=== PATIENT | female | born 1970 | race Caucasian/White ===

== ENCOUNTER 2018-07-06 13:56 | Inpatient (IN) ==
[~2018-07-06 13:56] MED LIST: LIDOCAINE W/ SODIUM BICARB 0.5 ML SYR SUBD ONE; Lactated Ringers 1,000 ML PRIMARY IV ONE; Nasal Sanitizer POPSWAB ampule 3 AMP (Nozin) PREOP DOSE ENOS SCH; ceFAZolin Inj 2gm (Premix) 2 GM/50 ML BAG IV ONE
[2018-07-06] MEDS ORDERED: ceFAZolin Inj 2gm (Premix) 2 GM/50 ML BAG IV ONE (14:07)
[2018-07-06] MEDS ORDERED: Vancomycin Inj 1gm vial ONE ×2 (14:07→17:47)
[2018-07-06] MEDS ORDERED: Lactated Ringers 1,000 ML PRIMARY IV ONE (14:08)
[2018-07-06] MEDS ORDERED: LIDOCAINE W/ SODIUM BICARB 0.5 ML SYR ONE (14:08)
[2018-07-06] MEDS ORDERED: Sodium Chloride 0.9% 250 ML ONE (14:09)
[2018-07-06 14:37] LABS: BILIRUBIN,URINE NEGATIVE (NEG); CLARITY,URINE CLEAR (CLEAR); COLOR,URINE YELLOW (Y); GLUCOSE, URINE (UA) 500 mg/dL (NEG); OCCULT BLOOD,URINE NEGATIVE (NEG); PH,URINE 5.5 (5.0-8.5); PROTEIN,URINE NEGATIVE (NEG); URINE SAMPLE TYPE CLEAN CATCH URINE; UROBILINOGEN,URINE 0.2 EU/dL (0.2)
[2018-07-06] MEDS ORDERED: SUCCINYLCHOLINE CHLORIDE 20 MG/1 ML - 10 ML ONE (14:49)
[2018-07-06] MEDS ORDERED: ROCURONIUM 10 MG/1 ML - 5 ML VIAL IVP ONE (14:49)
[2018-07-06] MEDS ORDERED: PROPOFOL 10 MG/1 ML (200 MG/20 ML) VIAL IV ONE ×2 (15:50)
[2018-07-06] MEDS ORDERED: DEXTROSE 50%-WATER SYRINGE 50 ML SYRINGE ONE ×2 (16:28→20:05)
[2018-07-06] MEDS: DEXTROSE 50%-WATER SYRINGE 50 ML SYRINGE IVP ONE ×2 (16:35→20:08)
[2018-07-06] MEDS ORDERED: BUPIVACAINE 0.25% W/ EPI - 10 ML VIAL ONE (17:21)
[2018-07-06] MEDS ORDERED: Gentamicin Inj 40 MG/ML VIAL ONE (17:47)
[2018-07-06] MEDS ORDERED: Sodium Chloride 0.9% vial 20 ML ONE (17:47)
[2018-07-06] MEDS ORDERED: BUPivacaine Liposome/PF (Exparel) Inj 20ml vial INFIL ONE (17:48)
[2018-07-06] MEDS ORDERED: BACITRACIN 50,000 UNIT VIAL IRRIG ONE (17:51)
[2018-07-06] MEDS ORDERED: ONDANSETRON 4 MG/2 ML VIAL IVP PRN ×2 (20:02→20:58)
[2018-07-06] MEDS ORDERED: LIDOCAINE W/ SODIUM BICARB 0.5 ML SYR SUBD PRN (20:02)
[2018-07-06] MEDS ORDERED: fentaNYL Inj 100 MCG/2 ML VIAL IVP PRN (20:02)
--- NOTE | 2018-07-06 20:02 | GEN.OPNOTE ---
Operative Note Surgery Date: 07/06/18 Preoperative Diagnosis: 1. Status post work related injury. 2. Chronic low back pain secondary to #1. 3. Chronic right lower extremity symptoms secondary to #1. 4. Mild to moderate lumbar degenerative changes, age consistent. 5. Good coverage of her chronic low back and right lower extremity symptoms with a previous dorsal column stimulator system that had to subsequently be removed for infection. Postoperative Diagnosis: 1. Status post work related injury. 2. Chronic low back pain secondary to #1. 3. Chronic right lower extremity symptoms secondary to #1. 4. Mild to moderate lumbar degenerative changes, age consistent. 5. Good coverage of her chronic low back and right lower extremity symptoms with a previous dorsal column stimulator system that had to subsequently be removed for infection. Procedure: 1.) Redo T10-11 laminectomy for the placement of dorsal column system paddle lead electrode into the epidural space. (CPT code: 25697). 2.) Insertion of [employer] 7 Elite dorsal column stimulator system IPG/battery into the left buttocks. (CPT code: 40941) Surgeon: Gutierrez Guzman MD Transit Planning Director: NIGEL Layne Anesthesia Provider: Aydin Carlos MD Anesthesia Type: General Estimated Blood Loss (mL): 20 Fluids: See anesthesia record Pathology: None Indications: Ms. Hayes is a 47 year old female status post a work related injury with resulting chronic low back and bilateral lower extremity pain. She underwent a successful dorsal stimulator trial. She underwent a permanent dorsal column stimulator placement in June 2017 which worked well to reduce her back and leg symptoms, but the system had to be removed in July 2017 for infection. She was cleared by Dr. Uriarte to proceed with placing a new dorsal column stimulator system and Worker's Compensation authorized this surgery. She wished to proceed with the surgical procedure. Findings: None Complications: None Operative Summary: Ms. Hayes was met in the preoperative area. Her documented surgical history and physical in her chart was reviewed. The procedure to be performed was confirmed with Miss Nguyen and she was in agreement on the procedure to be performed and this matched what was written on the patient's consent form. Any questions that she or her had were answered before she was taken back to the operating room suite. Ms. Hayes was brought back to the operating room suite and put under general anesthesia and intubated by the anesthesia staff. She had a Ramos catheter placed or bladder for the procedure. She had pneumatic compression hose placed on her lower legs bilaterally. Ms. Hayes was carefully rolled over onto the Mo surgical table with her arms gently positioned upwards with her shoulders abducted less than 90. Her arms were well-padded with foam padding on top of the padding the surgical armboards. The region of her chest and axilla was checked bilaterally to make sure that there were no pressure points over the region of the brachial plexus. Her breasts were checked be below the chest pad of the Mo table no pressure points over the nipples. All bony prominences were well padded. Her Ramos catheter was checked be free from kinks. Her pneumatic compression hose was attached and pneumatic compression device. Ms. Hayes's midline thoracic scar from her previous dorsal column simulator system placement was demarcated with a skin marker. A new IPG/battery site was chosen in the left buttocks location. The intended incision for the IPG/battery site was demarcated with a skin marker with several crosshatches. She was prepped and draped in the usual and standard fashion. She was given 2 g of Ancef and a gram of vancomycin IV for perioperative antibiosis. A standard surgical timeout was performed identifying the correct patient, the correct procedure, and the correct equipment being available for the procedure. Both intended skin incisions were injected subcutaneously with quarter percent Marcaine with 1 in 200,000 epinephrine. The left buttocks incision was incised with a 10 blade scalpel and all dermal and superficial bleeding points coagulat ed with bipolar cautery. Dissection was then taken down through the subcutaneous tissue using Bovie cautery to a depth of approximately a 7 cm and half to 2 cm and then a pocket was made in the subcutaneous tissue at this depth with three quarters of the pocket being caudal to the skin incision and quarter of the pocket being rostral to the skin incision. Bacitracin soaked sponges were placed in to the formed pocket. Attention was turned to the thoracic exposure. The skin was incised with a 10 blade scalpel and all dermal and superficial bleeding points were coagulated with bipolar cautery. Dissection was continued down through the subcutaneous tissue and scar tissue from the patient's previous surgery to the thoracic fascia. The small gap between the T10 and T11 spinous processes where the caudal aspect of the T10 spinous process had been removed during her previous surgical procedure was identified. Subperiosteal dissection was performed down the T10 spinous process and the T11 spinous process and out over the respective lamina bilaterally. Cerebellar retractors were placed for self-retaining retraction. The scar tissue between the T10 and T11 spinous processes was carefully removed down to close to the level of the spinal canal using a large Leksell rongeur. The high-speed [employer] electric drill with a matchstick bit was then used to extend the previous partial T10 T10 laminectomy more rostrally. An up angled curette was then used to carefully dissect the scar tissue from underneath the ventral aspect of the T10 lamina dissecting this plane to the leading edge of the T10 lamina and the canal and also to the lateral aspects of the canal bilaterally. The small Medtronic plastic epidural dissector was then placed into the dorsal epidural space ventral to the T10 lamina and advanced rostrally advancing easily into the epidural space. The same was then performed with the large Medtronic plastic epidural dissector. The [employer] Pent[employer] dorsal column stimulator paddle lead electrode array was then passed into the epidural space passing easily. It was carefully adjusted a few times to get it in as close to a midline position as possible. The final position of the paddle lead electrode array was spanning the entire aspect of the T9 vertebral body as well as the T8-9 and T9-10 disc spaces. The rostral aspect of the electrode array was situated somewhat right of midline with the caudal aspect of the electrode array situated somewhat left of midline but it was felt that good coverage including good lower extremity coverage bilaterally would be able to be obtained with the position of the electrode array. A channel was made through the rostral aspect of the T11 spinous process with a bone clamp. A #0 silk suture was passed through the channel in the T11 spinous process and tied securely to the spinous process. The lead anchors were then passed over the leads and then the leads were securely anchored to the T11 spinous process with the silk suture. Another AP fluoroscopic image was obtained to make sure that the paddle lead electrode array remained in the same position without change. A small pocket was made above the fascia in the inferior aspect of the thoracic dissection on the left to make a small pocket for a stress relieving loop of the leads. The lead tunneler was then tunneled from this pocket to the IPG/battery pocket in the left buttocks through the subcutaneous tissue. The trocar was then removed from the plastic sheath and the leads were passed with a plastic sheath to the left buttocks IPG/battery pocket and the muscle plastic sheath was removed. The ends of the lead contacts were then cleansed with a bacitracin soaked sponge and dried with sterile dry sponge. The ends of the leads were then placed in to the [employer] Proclaim 7 Elite IPG/battery devise and secured within the device using the [employer] screwdriver. A gentle tugged on each lead confirmed that there were snugly attached in the device. The IPG/battery device was then interrogated with all contacts made to the thoracic lead electrode array contacts with good impedance indicating that the device was fully functional. Both surgical sites were irrigated with hydrogen peroxide solution. This was allowed to sit for a few minutes. The surgical sites were then both pulse lavaged with 3 L of bacitracin/vancomycin/gentamicin solution. The IPG/battery device was then placed, label up, with any excess leads coiled behind the device into the IPG/battery pocket. The device was secured to the deep subcutaneous tissue using two #0 silk suture. A stress relieving loop was made in the proximal aspect the leads and the thoracic dissection and placed into the subcutaneous pocket above the fascia at the left lower aspect of the surgical dissection. Both surgical sites were again irrigated with bacitracin irrigation. The closure of both sites were begun. The IPG/battery site was closed with 2-0 Vicryl suture in the deep subcutaneous tissue. The dermal and superficial subcutaneous tissue was then reapproximated with 3-0 Vicryl suture in an inverted interrupted fashion. The thoracic fascia was closed tightly with #1 Vicryl suture in interrupted fashion. The subcutaneous tissue was reapproximated with 2-0 Vicryl suture in a interrupted fashion. The dermis and superficial subcutaneous tissue was reapproximated with 3-0 Vicryl suture in an inverted interrupted fashion. During the closure 20 mL of Experel deluded with 10 mL of quarter percent Marcaine was injected in the subcutaneous tissue all around both incision sites between the closures with the 2-0 Vicryl suture and 3-0 Vicryl suture. The Ioban drape was pulled back from the skin edges from both incisions. The final closure of both incisions was with surgical stainless steel julisa. The incisions were cleansed with a bacitracin soaked sponge and dried with a sterile dry sponge. The incisions were dressed with coverlet her dressings. All surgical drapes removed from Ms. Hayes. She was carefully rolled over onto the PACU stretcher. She was awoken and a the anesthesia staff. She was taken the recovery room in stable condition. All surgical counts reported as correct by the scrub and circulating personnel. A physician's costumer assistant, Mrs. Rin Almanza PA-C, assisted with the procedure including the exposure and closure portions of the procedure as well as with irrigation and suctioning throughout the procedure and pulse lavaging the surgical sites.
--- NOTE | 2018-07-06 20:02 | CRNA.PROGR ---
Anesthesia Recovery Phase I - Post Anesthesia Evaluation Patient's Condition on Arrival in Phase I: Stable Patient's Condition on Arrival in Phase II: Stable Pain Level: 3
--- NOTE | 2018-07-06 20:05 | CRNA.PROGR ---
Anesthesia Time - Procedure/Recovery Time Start Date: 07/06/18 End Date: 07/06/18 Anesthesia : Time In: 17:00 Anesthesia : Time Out: 20:01 Anesthesia : Total Time: 181 - Total Anesthesia Time Total Anesthesia Time (minutes): 181 - Other Weight: 68.946 kg Height: 5 ft 2 in Body Mass Index (BMI): 27.8 Physical Status: P3 Anesthesia Type: General Anesthesia : ET
--- NOTE | 2018-07-06 20:06 | CRNA.PROGR ---
Anesthesia Note - Progress Notes Anesthesia Progress Note: pt progressed well through PACU, to floor stable. Recovering well from anesthesia follow-up at physician/surgeon request PRN
[2018-07-06] MEDS ORDERED: Lactated Ringers 1,000 ML PRIMARY IV SCH (20:15)
--- NOTE | 2018-07-06 20:37 | NEURO.PROG ---
Subjective Post Op Day: 0 Pain Management: IV Ramos Catheter: Yes Diet: Constant carbohydrate Ambulating: No Additional Details: Awake and alert in PACU. Following commands. Moving all extremities well. Good knee flexion, dorsiflexion, plantarflexion bilaterally. PLAN: 1.) Continue post-operative antibiotics. 2.) Continue post-operative pain control. 3.) Advance diet. 4.) Start to mobilize in am. Objective : Data - Vital Signs Vital Signs and I&O: Vital Signs - Last Taken Temperature 97.8 F 07/06/18 16:10 Pulse Rate 96 07/06/18 16:10 Respiratory Rate 12 07/06/18 16:10 Blood Pressure 108/76 07/06/18 16:10 Pulse Ox 99 07/06/18 16:10 Intake and Output (24hr x 4 totals) 07/04/18 07/05/18 07/06/18 07/07/18 05:59 05:59 05:59 05:59 Intake Total 1750 / 1750 Output Total 270 / 270 Balance 1480 / 1480
[2018-07-06] MEDS ORDERED: Metoclopramide Inj 10 MG/2 ML VIAL IVP PRN (20:58)
[2018-07-06] MEDS ORDERED: oxyCODONE/APAP 10/325 Tab 1 EACH TAB PO PRN (20:58)
[2018-07-06] MEDS ORDERED: Ondansetron ODT Tab 4 MG TAB PO PRN (20:58)
[2018-07-06] MEDS ORDERED: DIAZEPAM 10 MG/2 ML (5 MG/1 ML) CARPUJECT IVP PRN (20:58)
[2018-07-06] MEDS ORDERED: DIAZEPAM 5 MG TABLET PO PRN (20:58)
[2018-07-06] MEDS ORDERED: Vancomycin-PHA to Dose IV SCH (20:58)
[2018-07-06] MEDS ORDERED: Prochlorperazine Edisylate Inj 10mg/2ml vial IVP PRN (20:58)
[2018-07-06] MEDS ORDERED: Fleet Enema 133ml RECTAL PRN (20:58)
[2018-07-06] MEDS ORDERED: INSULIN DEGLUDEC 36 UNIT SUBCUT SCH (20:58)
[2018-07-06] MEDS ORDERED: MAGNESIUM CITRATE 296 ML SOLUTION PO PRN (20:58)
[2018-07-06] MEDS ORDERED: traZODone Tab 50 MG TAB PO SCH (20:58)
[2018-07-06] MEDS ORDERED: [UNRECOGNIZED DRUG - OTHER] SCH (20:58)
[2018-07-06] MEDS ORDERED: BISACODYL 5 MG TABLET PO PRN (20:58)
[2018-07-06] MEDS ORDERED: ALPRAZolam Tab 1 MG TABLET PO PRN (20:58)
[2018-07-06] MEDS ORDERED: MAGNESIUM 400 MG/5 ML - 30 ML (MILK OF MAGNESIA) PO PRN (20:58)
[2018-07-06] MEDS ORDERED: DOCUSATE 100 MG CAPSULE PO PRN (20:58)
[2018-07-06] MEDS ORDERED: NARATRIPTAN HCL 2.5 MG PO SCH (20:58)
[2018-07-06] MEDS ORDERED: HYDROmorphone 2 MG TABLET PO PRN (20:58)
[2018-07-06] MEDS ORDERED: PROMETHAZINE 25 MG/1 ML VIAL IM PRN (20:58)
[2018-07-06] MEDS ORDERED: Promethazine Tab 25 MG TAB PO PRN (21:30)
[2018-07-06] MEDS ORDERED: AMITRIPTYLINE 25 MG TABLET PO SCH (21:45)
[2018-07-06] MEDS ORDERED: DEXTROSE 31 GM GEL PO PRN (21:53)
[2018-07-06] MEDS ORDERED: Glucagon Inj Vial 1 MG/ML VIAL IM PRN (21:53)
[2018-07-06] MEDS ORDERED: DEXTROSE 50%-WATER SYRINGE 50 ML SYRINGE IVP PRN (21:53)
[2018-07-06] MEDS ORDERED: Insulin Sliding Scale Protocol SUBCUT PRN (21:53)
--- NOTE | 2018-07-06 22:01 | PDOC ---
HPI - History of Present Illness Date of Service: 07/06/18 Time of Service: 21:55 Chief Complaint: chronic back pain History of Present Illness: This is a 47 YO female that is post operative after a spine stimulator was placed today by Dr. Guzman. Please see his surgical notes regarding the procedure. Post operatively, no complaints of chest pain, shortness of breath, or vomiting. The patient is still sleepy from anesthesia and surgery so the history was obtained from the patients at bedside and discussion with Dr. Guzman and review of the available medical record. The patient had a prior spine stimulator placed in April,, but developed an infection. She was treated by Dr. Uriarte, and ID doctor in [place]. He apparently cleared her to proceed with surgery after improvements in diabetes control and cessation of smoking. The patient has been on chantix and is down to 1 cigarette every four days per her husbands history. The patient is on long acting insulin therapy for her diabetes. She was apparently hypoglycemic prior to surgery and got an amp of D50. The stimulator worked very well for pain control in April,, according to her . The hospitalist service has been asked to assist with evaluation and management of diabetes and tobacco use. Past Medical History Medical History: 1. DMII, insulin dependent. 2. chronic back pain. 3. tobacco abuse. 4. sleep apnea. 5. anxiety disorder Surgical History: 1. Neck surgery X2. 2. CHolecysectomy Pertinent Family History: significant for COPD and heart problems Past Social History: smokes 1 cigarette every 4 days, used to smoek 3 PPD, rarely has alcohol, for 14 years. Has three healthy daughters. Tobacco Use: Current Every Day Smoker In the Past 12 Months, Have Used or Abuse Any of the Following Substance: None Alcohol Use: Rarely Medication / Allergies Home Medications: Home Medications Medication Instructions Recorded Confirmed Type alprazolam 1 mg tablet 1 mg PO BID-TID PRN 01/03/18 07/05/18 History amitriptyline 50 mg tablet 50 mg PO QDAY 01/03/18 07/05/18 History fluconazole 100 mg tablet 100 mg PO QDAY 01/03/18 07/05/18 History furosemide 20 mg tablet 20 mg PO QDAY 01/03/18 07/05/18 History gabapentin 600 mg tablet 600 mg PO TID 01/03/18 07/05/18 History insulin admin supplies See Dose Instructions .ROUTE 01/03/18 07/05/18 History subcutaneous pen .MEDSUPPLY #1 ea insulin degludec (U-100) 100 36 unit SUBCUT QHS ml 01/03/18 07/05/18 History unit/mL (3 mL) subcutaneous pen methocarbamol 500 mg tablet 500 mg PO QID 01/03/18 07/05/18 History naratriptan 2.5 mg tablet 2.5 mg PO ONCE 01/03/18 07/05/18 History omeprazole 40 mg capsule,delayed 40 mg PO QDAY 01/03/18 07/05/18 History release promethazine 12.5 mg tablet 12.5 mg PO Q6H PRN 01/03/18 07/05/18 History trazodone 50 mg tablet 50 mg PO QDAY 01/03/18 07/05/18 History oxycodone 10 mg tablet 20 mg PO Q4-6H PRN #240 tab 06/27/18 07/05/18 Rx Allergies/Adverse Reactions: Allergies Allergy/AdvReac Type Severity Reaction Status Date / Time sumatriptan [From Imitrex] Allergy Severe throat Verified 07/05/18 09:52 swells adhesive Allergy Rash Verified 07/06/18 14:52 Review of Systems - Respiratory Respiratory: REPORTS: Negative System Review - Cardiovascular Cardiovascular: REPORTS: Negative System Review - Gastrointestinal Gastrointestinal / Abdominal: REPORTS: Negative System Review Exam - Vitals Vital Signs: Vital Signs Temperature 97.0 F Temperature Source Temporal Artery Scan Pulse Rate [Pulse Oximeter] 95 Pulse Rate 86 Respiratory Rate 20 Blood Pressure [Right Arm] 118/81 Blood Pressure 136/83 Pulse Ox 91 Oxygen Flow Rate 3 Oxygen Delivery Method Nasal Cannula Height 5 ft 2 in Weight 152 lb - General General Appearance: No Acute Distress, Cooperative - Head Head Exam: Normal Inspection, Normocephalic, Atraumatic - Eye Eye Exam: POSITIVE: No Scleral Icterus - ENT ENT Exam: POSITIVE: Mucous Membranes Moist - Respiratory Respiratory Exam: POSITIVE: Clear to Auscultation - Bilaterally, Breathing Non Labored - Cardiovascular Cardiovascular Exam: POSITIVE: RRR, No Murmur, No Clicks, No Gallops, No Rubs, No JVD - GI/Abdominal GI/Abdominal Exam: POSITIVE: Normal Bowel Sounds, Non Tender, Non Distended, Soft - Rectal Rectal Exam: POSITIVE: Deferred - External Exam: POSITIVE: Deferred Exam: POSITIVE: Deferred, Ramos Catheter in Place - Extremities Extremities Exam: POSITIVE: No Clubbing Present, No Edema Present, No Cyanosis Present - Neurological Neurological Exam: POSITIVE: Alert, Oriented x 3, No Facial Droop, Speech Intact / Clear, Moves All Extremities Equally Results - Labs Additional Lab Results: I reviewed the urinalysis and it was negative with exception of glucose spilling Assessment and Plan - Patient Problems (1) DM2 (diabetes mellitus, type 2) Current Visit: Yes Status: Acute Code(s): E11.9 - Type 2 diabetes mellitus without complications Qualifiers: Diabetes mellitus terminal carman insulin use: with terminal carman use Diabetes mellitus complication status: without complication Qualified Code(s): E11.9 - Type 2 diabetes mellitus without complications; Z79.4 - long term care social worker (current) use of insulin (2) Tobacco abuse Current Visit: Yes Status: Acute Code(s): Z72.0 - Tobacco use (3) S/P insertion of spinal cord stimulator Current Visit: Yes Status: Acute Code(s): Z98.890 - Other specified postprocedural states (4) Sleep apnea Current Visit: No Status: Chronic Code(s): G47.30 - Sleep apnea, unspecified Qualifiers: Sleep apnea type: unspecified type Qualified Code(s): G47.30 - Sleep apnea, unspecified (5) GERD (gastroesophageal reflux disease) Current Visit: Yes Status: Chronic Code(s): K21.9 - Gastro-esophageal reflux disease without esophagitis Qualifiers: Esophagitis presence: esophagitis presence not specified Qualified Code(s): K21.9 - Gastro-esophageal reflux disease without esophagitis (6) Chronic neck and back pain Current Visit: Yes Status: Chronic Code(s): M54.2 - Cervicalgia; M54.9 - Dorsalgia, unspecified; G89.29 - Other chronic pain - Assessment / Plan Additional Assessment/Plan Details: will resume chantix for smoking cessationcontinue along with patients action plan for smoking cessation resume long acting insulin bedside blood glucose AC and HS will write for sliding scale insulin check HbA1c to assess control of DMII over past few months labs in AM thank you for this consult, will be glad to assist in the patients care during her hospital stay.
[2018-07-06] MEDS: GABAPENTIN 300 MG CAPSULE PO SCH (22:04)
[2018-07-06] MEDS: ceFAZolin Inj 1 GM in Sodium Chloride 0.9% 100 ML IV SCH (22:05)
[2018-07-06] MEDS ORDERED: diphenhydrAMINE 25 MG CAPSULE PO PRN (22:49)
[2018-07-06] MEDS ORDERED: MELATONIN 5 MG TABLET PO PRN (22:49)
[2018-07-06] MEDS: HYDROmorphone 2 MG/1 ML IVP PRN (23:11)
[2018-07-07] MEDS: oxyCODONE IR Tab 5 MG TAB PO PRN ×3 (01:00→10:01)
[2018-07-07] MEDS: HYDROmorphone 2 MG/1 ML IVP PRN (03:40)
[2018-07-07 05:19] LABS: BASOPHILS # (AUTO) 0.03 10*3/UL; BASOPHILS % (AUTO) 0.2 % (0-1); EOSINOPHILS # (AUTO) 0.19 10*3/UL; EOSINOPHILS % (AUTO) 1.5 % (0-8); Hematocrit [HCT] 36.7 % (37.0-47.0); LYMPHOCYTES # (AUTO) 3.73 10*3/uL; MEAN CORPUSCULAR HEMOGLOBIN 29.4 PG (27-31); MEAN CORPUSCULAR HGB CONC 32.7 g/dL (33-37); MEAN PLATELET VOLUME 10.4 FL (7.4-12.2); MONOCYTES # (AUTO) 0.57 10*3/UL (0.3-0.8); MONOCYTES % (AUTO) 4.5 % (5-15); NEUTROPHILS # (AUTO) 8.21 10*3/UL; NEUTROPHILS % (AUTO) 64.3 % (50-80); RED BLOOD COUNT 4.08 10^6/uL (4.20-5.40)
[2018-07-07] MEDS: ceFAZolin Inj 1 GM in Sodium Chloride 0.9% 100 ML IV SCH (05:22)
[2018-07-07 05:27] LABS: BLOOD UREA NITROGEN 9 mg/dL (7-22)
[2018-07-07 05:31] LABS: PLATELET MORPHOLOGY COMMENT NORMAL MORPHOLOGY (NORM); RBC MORPHOLOGY COMMENT NORMAL MORPHOLOGY (NORM); WBC MORPHOLOGY COMMENT NORMAL MORPHOLOGY (NORM)
[2018-07-07 05:34] LABS: HEMOGLOBIN A1C 8.96 % (4.2-6.0)
--- NOTE | 2018-07-07 06:40 | NEURO.PROG ---
Subjective Post Op Day: 1 Pain Management: PO Ramos Catheter: Yes Flatus: Yes Diet: Regular Ambulating: Yes Additional Details: Awake and alert. Surgical pain as expected but appears comfortable in bedside chair. Denies any new leg symptoms. Moving all extremities well. Good/full knee flexion/dorsiflexion/plantarflexion bilaterally. PLAN: 1.) Continue post-operative antibiotics. 2.) Continue post-operative pain control. 3.) Continue to mobilize. 4.) Discontinue Ramos catheter. 5.) Discharge to [facility]. 6.) Discharge on Keflex and Diflucan. Objective : Data - Labs CBC and BMP: 07/07/18 04:45 07/07/18 04:45 - Vital Signs Vital Signs and I&O: Vital Signs - Last Taken Temperature 99.1 F 07/07/18 03:23 Pulse Rate 104 H 07/07/18 03:23 Respiratory Rate 16 07/07/18 03:23 Blood Pressure 103/63 07/07/18 03:23 Pulse Ox 91 07/07/18 05:30 Intake and Output (24hr x 4 totals) 07/05/18 07/06/18 07/07/18 07/08/18 05:59 05:59 05:59 05:59 Intake Total 2200 / 2200 892 / 892 Output Total 770 / 770 Balance 1430 / 1430 892 / 892
[2018-07-07 06:43] VITALS: BP 94/46; RESP 22; TEMP 98; O2SAT 93
[2018-07-07] MEDS ORDERED: FUROSEMIDE 20 MG TABLET PO SCH (07:00)
[2018-07-07] MEDS ORDERED: PANTOPRAZOLE 40 MG TABLET PO SCH (07:00)
[2018-07-07] MEDS: Insulin Lispro Flexpen 300 UNIT/3 ML INSULN.PEN SUBCUT SCH ×2 (07:00→12:14)
[2018-07-07] MEDS ORDERED: OMEPRAZOLE 40 MG CAPSULE PO SCH (07:00)
[2018-07-07] MEDS ORDERED: FLUCONAZOLE 100 MG TABLET PO SCH (09:00)
[2018-07-07] MEDS ORDERED: CHANTIX 1 MG PO SCH (09:00)
[2018-07-07] MEDS ORDERED: AMITRIPTYLINE 25 MG TABLET PO SCH (09:00)
[2018-07-07] MEDS: GABAPENTIN 300 MG CAPSULE PO SCH (09:45)
--- NOTE | 2018-07-07 10:46 | PT.PROG ---
Progress Note Progress Note: S. patient stated that she is feeling a little off this morning, however agreed to go for a walk. O. Patient ambulated 300 feet around the nurses station and back to her room where she was left in her chair with alarm and call light. A. Patient tolerated ambulation well, she was unable to perform stair training this morning due to not feeling well however agreed to attempt stairs this afternoon. P. Patient will perform stair training this afternoon.
--- NOTE | 2018-07-07 11:17 | DCSUMMARY ---
Hospitalization Summary Admit Date: 07/06/2018 Discharge Date: 07/07/18 Primary Diagnosis:: status post spinal stimulator Hospital Course: This very pleasant 47-year-old female who has diabetes mellitus type II, poorly controlled, and tobacco abuse. She is here for spinal stimulator for chronic neck and back pain. See Dr. Guzman's notes regarding that procedure. That was performed yesterday. Postoperatively, the patient did very well. Her blood sugars were well controlled and were below 180 through the hospital stay. In terms of her recovery from surgery, she has been cleared from neurosurgery to leave the hospital. In terms of her diabetes, she is on a long-acting insulin, and is also on NovoLog. She tells me she is on a sliding scale only for her NovoLog but she consistently runs as low as 40 in the afternoons. She tells me that she eats only one large meal a day, her dinner, and she often "forgets" to eat during the rest of the day, however she is still taking sliding scale insulin at breakfast and lunchtime. She often takes. Better snacks to try and increase her blood sugar when she sees her glucose in the 40s. Her hemoglobin A1c is just below 9 currently. She has a history of prior wound infection, so I have adjusted her scale to 12 units scheduled with dinner, 5 units scheduled with breakfast, and a sliding scale that's more conservative. I've asked her to take 2 units per 50 of glucose starting out 151-200. When she gets to over 400 she should take 12 units. I've asked her not to use the sliding scale for lunchtime. I've asked her to use it to cover her dinner time. There were no other issues in terms of the patient's medical issues during the hospital stay. She is gone from 3 packs per day to one cigarette every 4 days with the use of Chantix. She tells me that she has completed her Chantix therapy. Today, no complaints of chest pain, shortness breath, nausea or vomiting. Her pain is controlled. I watched her ambulate and she did very well. She is normally on oxygen with her obstructive sleep apnea at nighttime in the local oxygen company has been willing to lend her a concentrator while she is in town until the roads open and she is headed back to [place]. Assessment and Plan: 1. As per discharge assessments noted 2. Disposition: Patient is discharged home. 3. Condition on discharge, stable and improved. 4. Diet: regular diet 5. Activities: resume normal activities 6. Follow-Up: 1. Follow-up with primary provider within 7 days of discharge 7. Medications at the Time of Discharge: Home Medications Medication Instructions Recorded Confirmed Type alprazolam 1 mg tablet 1 mg PO BID-TID PRN 01/03/18 07/05/18 History amitriptyline 50 mg tablet 50 mg PO QDAY 01/03/18 07/05/18 History furosemide 20 mg tablet 20 mg PO QDAY 01/03/18 07/05/18 History gabapentin 600 mg tablet 600 mg PO TID 01/03/18 07/05/18 History insulin admin supplies See Dose Instructions .ROUTE 01/03/18 07/05/18 History subcutaneous pen .MEDSUPPLY #1 ea insulin degludec (U-100) 100 36 unit SUBCUT QHS ml 01/03/18 07/05/18 History unit/mL (3 mL) subcutaneous pen methocarbamol 500 mg tablet 500 mg PO QID 01/03/18 07/05/18 History naratriptan 2.5 mg tablet 2.5 mg PO ONCE 01/03/18 07/05/18 History omeprazole 40 mg capsule,delayed 40 mg PO QDAY 01/03/18 07/05/18 History release promethazine 12.5 mg tablet 12.5 mg PO Q6H PRN 01/03/18 07/05/18 History trazodone 50 mg tablet 50 mg PO QDAY 01/03/18 07/05/18 History oxycodone 10 mg tablet 20 mg PO Q4-6H PRN #240 tab 06/27/18 07/05/18 Rx Cephalexin [Keflex] 500 mg PO TID #60 cap 07/07/18 Rx Fluconazole 100 mg PO QDAY #30 tab 07/07/18 Rx Insulin Aspart [Novolog] 100 unit SQ TID 30 Days cartridge 07/07/18 Rx I wrote a sliding scale for the patient. Surgery observation discharge Exam - Vitals Vital Signs: Vital Signs Temperature 98 F Temperature Source Temporal Artery Scan Pulse Rate [Pulse Oximeter] 97 Pulse Rate 86 Respiratory Rate 22 Blood Pressure [Right Arm] 94/46 Blood Pressure 136/83 Pulse Ox 93 Oxygen Flow Rate 3 Oxygen Delivery Method Nasal Cannula Height 5 ft 2 in Weight 152 lb - General General Appearance: No Acute Distress, Cooperative - Eye Eye Exam: POSITIVE: No Scleral Icterus - ENT ENT Exam: POSITIVE: Mucous Membranes Moist - Neck Neck Exam: JVP is not Raised - Respiratory Respiratory Exam: POSITIVE: Clear to Auscultation - Bilaterally, Breathing Non Labored - Cardiovascular Cardiovascular Exam: POSITIVE: RRR, No Murmur, No Clicks, No Gallops, No Rubs, No JVD - GI/Abdominal GI/Abdominal Exam: POSITIVE: Normal Bowel Sounds, Non Tender, Non Distended, Soft - Extremities Extremities Exam: POSITIVE: No Clubbing Present, No Edema Present, No Cyanosis Present - Neurological Neurological Exam: POSITIVE: Alert, Oriented x 3, Normal Gait (I watched the patient ambulate and she did very well through the hallway.), No Facial Droop, Speech Intact / Clear, Moves All Extremities Equally Data Peritnent Studies: Laboratory Results 07/06/18 07/07/18 07/07/18 14:33 04:45 04:45 WBC 12.77 H RBC 4.08 L Hgb 12.0 Hct 36.7 L MCV 90.0 MCH 29.4 MCHC 32.7 L RDW Std Deviation 46.7 RDW Coeff of Mitch 14.4 Plt Count 233 MPV 10.4 Immature Gran % (Auto) 0.3 Neut % (Auto) 64.3 Lymph % (Auto) 29.2 [place] % (Auto) 4.5 L Eos % (Auto) 1.5 Baso % (Auto) 0.2 Immature Gran # (Auto) 0.04 Neut # (Auto) 8.21 Lymph # (Auto) 3.73 [place] # (Auto) 0.57 Eos # (Auto) 0.19 Baso # (Auto) 0.03 WBC Morphology Comment Normal morphology Plt Morphology Comment Normal morphology RBC Morph Comment Normal morphology Sodium 137 Potassium 3.8 Chloride 106 Carbon Dioxide 26 Anion Gap 5 BUN 9 Creatinine 0.5 Estimated GFR > 60 BUN/Creatinine Ratio 18.00 Glucose 162 H Mean Blood Glucose Hemoglobin A1c Calculated Osmolality 286.0 Calcium 8.4 L Ur Collection Type Clean catch urine Urine Color Yellow Urine Clarity Clear Urine pH 5.5 Ur Specific [place] <=1.005 Urine Protein Negative Urine Glucose (UA) 500 Urine Ketones Negative Urine Occult Blood Negative Urine Nitrate Negative Urine Bilirubin Negative Urine Urobilinogen 0.2 Ur Leukocyte Esterase Negative Ur Culture Indicated? Culture not set 07/07/18 04:45 WBC RBC Hgb Hct MCV MCH MCHC RDW Std Deviation RDW Coeff of Mitch Plt Count MPV Immature Gran % (Auto) Neut % (Auto) Lymph % (Auto) [place] % (Auto) Eos % (Auto) Baso % (Auto) Immature Gran # (Auto) Neut # (Auto) Lymph # (Auto) [place] # (Auto) Eos # (Auto) Baso # (Auto) WBC Morphology Comment Plt Morphology Comment RBC Morph Comment Sodium Potassium Chloride Carbon Dioxide Anion Gap BUN Creatinine Estimated GFR BUN/Creatinine Ratio Glucose Mean Blood Glucose 212.368 Hemoglobin A1c 8.96 H Calculated Osmolality Calcium Ur Collection Type Urine Color Urine Clarity Urine pH Ur Specific [place] Urine Protein Urine Glucose (UA) Urine Ketones Urine Occult Blood Urine Nitrate Urine Bilirubin Urine Urobilinogen Ur Leukocyte Esterase Ur Culture Indicated? Selected Entries 07/06/18 20:00 07/06/18 20:08 07/07/18 07:00 Finger Stick Blood Glucose 74 L 74 L 151 H Patient Problems - Patient Problem List (1) S/P insertion of spinal cord stimulator Current Visit: Yes Status: Acute Code(s): Z98.890 - Other specified postprocedural states Category: Surgical (2) DM2 (diabetes mellitus, type 2) Current Visit: Yes Status: Acute Code(s): E11.9 - Type 2 diabetes mellitus without complications Qualifiers: Diabetes mellitus credit office manager insulin use: with assisted use Diabetes mellitus complication status: without complication Qualified Code(s): E11.9 - Type 2 diabetes mellitus without complications; Z79.4 - USP (current) use of insulin Category: Medical (3) Tobacco abuse Current Visit: Yes Status: Chronic Code(s): Z72.0 - Tobacco use Category: Medical (4) Sleep apnea Current Visit: Yes Status: Chronic Code(s): G47.30 - Sleep apnea, unspecified Qualifiers: Sleep apnea type: unspecified type Qualified Code(s): G47.30 - Sleep apnea, unspecified Category: Medical (5) GERD (gastroesophageal reflux disease) Current Visit: Yes Status: Chronic Code(s): K21.9 - Gastro-esophageal reflux disease without esophagitis Qualifiers: Esophagitis presence: esophagitis presence not specified Qualified Code(s): K21.9 - Gastro-esophageal reflux disease without esophagitis Category: Medical (6) Chronic neck and back pain Current Visit: Yes Status: Chronic Code(s): M54.2 - Cervicalgia; M54.9 - Dorsalgia, unspecified; G89.29 - Other chronic pain Category: Medical
[2018-07-07] MEDS ORDERED: Influenza 18-19 Vaccine (6mo+) 60 MCG/0.5 ML SYRINGE IM ONE (12:30)
--- NOTE | 2018-07-08 16:13 | PT PM DAY ---
PM - (Inpatient Observation) S: The patient reports no new changes. O: The patient was seen this afternoon for physical therapy and safety awareness. She was able to transfer from supine to sit and sit to stand independently. She made a couple laps around the nurse's station. Her biggest problem at this time is she does need three liters of oxygen to keep her oxygen saturation up after surgery. The patient ascended and descended one flight of stairs with stand by assist. A: The patient is waiting for [facility] to bring her oxygen and get that set up through the nursing staff so that she can be discharged. The patient hopes to be discharged sometime later on this afternoon. Her current therapy goals have been met for a safe discharge. P: No further therapy is indicated at this time. CHICHOD
--- NOTE | 2018-07-11 14:22 | OTI REPORT ---
Thank you for the referral of Erick Hayes. She was seen on 07/07/18 for an occupational therapy inpatient evaluation secondary to placement of a spine stimulator. SUBJECTIVE: The patient is a 47-year-old female. The patient reports that she had a spine stimulator placed. The patient is from [place]. She lives at home with her who will be able to help her. The patient was in and out of alertness today. Per staff report, the patient has been slightly non-compliant on wearing her oxygen and keeping her oxygen levels in a good position. PAST MEDICAL HISTORY: Past medical history can be found in the patient's medical record. OBJECTIVE FINDINGS: General observations: The patient was standing in her room by her upon the therapist's arrival. The patient was in and out of alertness. Approximately 10 minutes into the session we checked her oxygen levels and they were down to 72%. We put her oxygen back on at 3 liters to get her back up into the upper 90s. Activities of daily living: The patient was instructed on how to use adaptive devices. She reports that she has had trouble dressing herself for quite some time because of her low back pain. She was issued a manager pathology, sock aide, shoe horn, and bath sponge to increase her independence at home. She reports that she is having slight difficulty wiping self, but she did not want any toilet tongs. The patient has a shower chair as well as a higher toilet seat at home. ASSESSMENT: The patient will benefit from adaptive devices. We did try to have the patient bend over to complete dressing tasks and she was experiencing a lot of pain. The patient definitely needs her oxygen to stay alert. TREATMENT PLAN: Patient will be discharged from Occupational Therapy services at this time. INITIAL TREATMENT: Treatment today consisted of the initial evaluation activities only. JALIL
== END 2018-07-07 13:49 | disposition home or self-care (01) | DRG 518 ==
LOC: OPS 13:56 → EDSTATUS 16:30 → MED/SURG 20:35
PROVIDERS: ADMIT Neurological Surgery; ATTEND Neurological Surgery